=== PATIENT | female | born 1930 | race Caucasian/White ===

== ENCOUNTER 2017-02-16 17:35 | Inpatient (IN) | payer MEDICARE, BC ==
--- NOTE | ~2017-02-16 | IDS ---
Interim Discharge Summary [facility] [address] [place]. [address] NAME: NOELLE SMITH : [birth year] STATUS : ADM IN [facility]#: [id number] AGE: 86 ADM/REG DATE : 02/17/17 MR#: [id number] REPORT SERV DATE: 02/22/17 DICTATED BY: ELVER FLORES DATE: 02/21/17 REPORT STATUS : Draft TRANSCRIBED BY: DEAN DATE: 02/21/17 ADMISSION DATE: 02/17/2017 DISCHARGE DATE: 02/21/2017 PROCEDURES DONE: 1. CT of the head without contrast, no acute intracranial abnormality identified at this time. Moderate advanced cortical volume loss with prominent ex-vacuo dilatation of the ventricle system, moderate chronic deep white matter ischemic changes. 2. On 02/16/2017, chest x-ray: No acute process. 3. On 02/17/2017, ultrasound of carotids demonstrate category 1 changes bilaterally, less than 50% luminal stenosis by NASCET criteria. 4. On 02/17/2017, ultrasound renal, kidney symmetric, non-obstructed. Aorta, vena cava, urinary bladder identified and are normal. REASON FOR ADMISSION: Syncope. HISTORY OF HOSPITAL STAY: An 86-year-old white female with past medical history of Parkinson's disease, dementia, hypertension, hyperlipidemia, cardiac disease status post stent, GERD, presenting with syncopal episode. The patient was admitted for further evaluation of syncope. The patient underwent CT of the head, ultrasound of the carotids which were all within normal limits. However, the patient turned out to be positive for orthostatics which was quite severe. The patient has been given IV fluids slowly. Unfortunately, the patient's did not initially want the patient to go to an SNF. The wanted to take the patient home. However, due to the patient's severe orthostatics, the patient's realized that the best safe place for the patient is to be in a rehab facility. Unfortunately, when the patient's changed his mind it was during the weekend, hence Case Management will work on placement on Thursday. INTERIM DISCHARGE DIAGNOSES: 1. Syncope secondary to orthostatics. Slowly resolving. Continue orthostatic checks every shift. 2. Positive orthostatics. Continue IV fluids. 3. Parkinson's, currently asymptomatic. 4. Dementia, well controlled. FBJohnnie/MODL Elver Flores MD / [id number] CC: Elver Flores MD Interim Discharge Summary [address] [address] NAME: NOELLE SMITH : [birth year] STATUS : ADM IN PAT#: [id number] AGE: 86 ADM/REG DATE : 02/17/17 MR#: [id number] REPORT SERV DATE: 02/22/17 DICTATED BY: ELVER FLORES DATE: 02/21/17 REPORT STATUS : Draft TRANSCRIBED BY: MODL DATE: 02/21/17 Sergio Sage MD
--- NOTE | ~2017-02-16 | HP ---
History And Physical [facility] [address] [place]. [address] NAME: NOELLE MCNAIR : [birth year] STATUS : ADM Jelena PAT#: [id number] AGE: 86 ADM/REG DATE : 02/16/17 MR#: [id number] REPORT SERV DATE: 02/17/17 DICTATED BY: AMBER JOHN DATE: 02/16/17 REPORT STATUS : Draft TRANSCRIBED BY: MODCarlito DATE: 02/16/17 DATE OF ADMISSION: 02/16/2017 POINT OF ENTRY: [facility] Emergency Room department. PRIMARY DIMMER BOARD OPERATOR: Joel Cortés M.D. CHIEF COMPLAINT: Syncope. HISTORY OF PRESENT ILLNESS: Ms. Mcnair is an 86-year-old female with history of Parkinson disease, dementia, coronary artery disease as well as hypertension and hyperlipidemia, who presents to the emergency department today with a syncopal episode. Majority of history is obtained from the patient's family who is at bedside. The patient has dementia and is a poor historian. They state that she has had troubles with syncope now for the past year or two. Her primary care physician has attributed to her blood pressure and drops in her blood pressure when she stands up, but family states that no significant radiologic or cardiac workup is undertaken for workup of her syncope. The patient suffered a syncopal episode on Thursday with a prolonged period of unconsciousness which is unusual for her, and they presented to [facility] where she was diagnosed with urinary tract infection and admitted to the hospital for overnight stay and then discharged to home. The patient suffered another syncopal episode today while working with Physical Therapy and was reportedly unconscious for approximately 10 to 15 minutes while sitting in a chair at which time EMS was called. They laid her down on the ground in which she quickly woke up. The family states that they just filled the antibiotics for the urinary tract infection today. She has not reportedly complained of any palpitations, chest pain, shortness of breath, or abdominal pain prior to or after her syncopal episode. They do report that she has had some episodes of nausea and vomiting in a period around her syncopal episodes. Initial evaluation in the emergency department for EKG that was nonischemic. CT scan of the brain is negative. Chest x-ray is clear. She does have a creatinine of 1.2 with no known baseline. White count 16,900. Orthostatic vital signs were undertaken which was grossly positive with dramatic drop in her blood pressure with no compensatory rise in heart rate. She was subsequently admitted to the Hospitalist Service for further evaluation and management. REVIEW OF SYSTEMS: Comprehensive review of system otherwise negative unless listed in history of present illness. PREVIOUS MEDICAL HISTORY: 1. Parkinson disease. 2. Hypertension. 3. Hyperlipidemia. 4. Dementia. History And Physical [address] [address] NAME: NOELLE MCNAIR : [birth year] STATUS : ADM Jelena PAT#: [id number] AGE: 86 ADM/REG DATE : 02/16/17 MR#: [id number] REPORT SERV DATE: 02/17/17 DICTATED BY: AMBER JOHN DATE: 02/16/17 REPORT STATUS : Draft TRANSCRIBED BY: DEAN DATE: 02/16/17 5. Coronary artery disease with remote history of PCI. 6. Gastroesophageal reflux disease. SURGICAL HISTORY: 1. Cholecystectomy. 2. Breast lumpectomy. 3. Cataract surgery. ALLERGIES: AMOXICILLIN. HOME MEDICATIONS: 1. Artificial Tears one to two drops p.r.n. 2. Aspirin 81 mg daily. 3. Atorvastatin 10 mg at bedtime. 4. Sinemet CR 1 tab b.i.d. 5. Ciprofloxacin 500 mg b.i.d. 6. Plavix 75 mg daily. 7. Aricept 5 mg at bedtime. 8. Lasix 20 mg daily. 9. Winslow half tab b.i.d. 10.Indomethacin 50 mg at bedtime. 11.Lansoprazole 30 mg daily. 12.Meclizine 25 mg q.8 hours p.r.n. 13.Namenda XR 21 mg at bedtime. 14.Toprol-XL 12.5 mg t.i.d. 15.Multivitamin tab daily. 16.Tramadol 50 mg b.i.d. SOCIAL HISTORY: Denies any tobacco, alcohol, or illicit. Is . FAMILY MEDICAL HISTORY: Mother with history of dementia. Father with colon cancer. Siblings with breast cancer and brain cancer. LABS AND IMAGIN. White count 16.9, hemoglobin is 12.1, hematocrit 37.1, and platelet count 326. 2. Sodium is 139, potassium 4.0, chloride 104, carbon dioxide 29, BUN 21, creatinine 1.20, glucose is 127, calcium is 9.5, and magnesium is 2.5. 3. Troponin is less than 0.02. 4. Lactic acid is 1.3. 5. Urinalysis: Specific gravity 1.013, 45 red blood cells per high field with no evidence of any infection but [address] scan of the brain shows no acute changes, shows moderate to advanced cortical volume loss and involutional deep white matter changes as well as ex vacuo dilatation of the ventricles. 7. Chest x-ray per my review shows no acute cardiopulmonary abnormality. 8. Her EKG per my review shows normal sinus rhythm with some left axis deviation and LVH but no evidence of any acute ischemia or infarction. History And Physical [address] [address] NAME: NOELLE MCNAIR : [birth year] STATUS : ADM Jelena PAT#: [id number] AGE: 86 ADM/REG DATE : 02/16/17 MR#: [id number] REPORT SERV DATE: 02/17/17 DICTATED BY: AMBER JOHN DATE: 02/16/17 REPORT STATUS : Draft TRANSCRIBED BY: DAEN DATE: 02/16/17 ORTHOSTATIC VITAL SIGNS: 1. Lying down blood pressure 140/54 and pulse is 74. 2. Sitting blood pressure 111/49 and pulse of 74. 3. Standing blood pressure 90/26 and pulse is 79. PHYSICAL EXAMINATION: VITAL SIGNS: Temperature is 97.3 degrees Fahrenheit, pulse is 65, respirations 14, saturating 97% on room air, and blood pressure 127/67. On recheck, blood pressure now 165/42 and pulse of 69. GENERAL: The patient is awake, alert, in no acute distress. Resting comfortably in bed. She is a well-developed, well-nourished, elderly female. Family is at bedside. HEENT: Atraumatic and normocephalic. Moist mucous membranes. Pupils are equal, round, and reactive to light and accommodation. Extraocular eye movements intact. No scleral icterus. NECK: No jugular venous distention or carotid bruits. CARDIAC: Regular rate and rhythm. No murmurs or gallops. Normal S1 and S2. LUNGS: Clear to auscultation bilaterally. No wheezes, rhonchi, or crackles. ABDOMEN: Soft, nontender, and nondistended with good bowel sounds. No rebound, guarding, or rigidity. EXTREMITIES: Warm and well perfused. No cyanosis, clubbing, or edema. The patient has multiple areas of ecchymoses of various ages of her bilateral lower extremities from the knees on down including the dorsum of bilateral feet, left greater than right. SKIN: Warm and dry except for noted above. PSYCH: Affect appropriate. NEURO: Alert and oriented x3. Cranial nerves 2 through 12 grossly intact. Speech is normal. Gait is not assessed. ASSESSMENT AND PLAN: Ms. Mcnair is an 86-year-old female who presents with a 1- to 2- year history of recurrent syncopal episodes and found here to have evidence of orthostatic hypotension. 1. Syncope. 2. Orthostatic hypotension. 3. Recent urinary tract infection. 4. Leukocytosis. 5. Hematuria. 6. Parkinson disease. 7. Dementia. PLAN: 1. Syncope. I suspect that the patient's recurrent syncope is likely due to orthostatic hypotension likely from underlying Parkinson disease and/or advanced age. CT scan of the brain was unremarkable. Labs notable for some mildly elevated creatinine level with unknown baseline as well as leukocytosis without evidence of underlying infection. She was profoundly orthostatic on exam. We will check carotid arterial Dopplers and echocardiogram, hold her Toprol-XL as well as Lasix, provide some IV fluid hydration, and recheck orthostatic vital signs in the morning. Physical therapy consultation for fall risk management. [facility] this History And Physical [address] [address] NAME: NOELLE MCNAIR : [birth year] STATUS : ADM Jelena PAT#: [id number] AGE: 86 ADM/REG DATE : 02/16/17 MR#: [id number] REPORT SERV DATE: 02/17/17 DICTATED BY: AMBER JOHN DATE: 02/16/17 REPORT STATUS : Draft TRANSCRIBED BY: MODL DATE: 02/16/17 is all again orthostatic hypotension related. 2. Orthostatic hypotension. I suspect this is likely due to autonomic insufficiency from her Parkinson disease and/or advanced age. She is also on metoprolol XL as well. We will hold her Toprol-XL as well as Lasix. Provide IV fluid hydration. Checking echo as well as carotid arterial Dopplers and recheck orthostatic vital signs in the morning. 3. Recent urinary tract infection. Family states that she did not fill her antibiotic until today. Urinalysis here has been sterilized. We will place her on some a short course of Levaquin. 4. Hematuria. Is on aspirin and Plavix. We will check a renal ultrasound. 5. Parkinson disease. Continue the patient's Sinemet. 6. Dementia. Continue the patient's home dementia medications. 7. Leukocytosis, likely again secondary to recent UTI. Chest x-ray is clear. Blood cultures have been obtained. She is afebrile with stable vital signs. 8. DVT prophylaxis. Lovenox subcu. 9. Code status. The patient wishes to be full code. MICHEALB/MODL ber John MD / [id number] CC: Pepe Love M.D. Joel Cortés M.D.
--- NOTE | ~2017-02-16 | DS ---
Discharge Summary [address] [place]. [address] NAME: NOELLE SMITH : [birth year] STATUS : DIS IN PAT#: [id number] AGE: 86 ADM/REG DATE : 02/17/17 MR#: [id number] REPORT SERV DATE: 02/27/17 DICTATED BY: LOLIS LOVE DATE: 02/26/17 REPORT STATUS : Draft TRANSCRIBED BY: MODL DATE: 02/26/17 ADMISSION DATE: 02/16/2017 DISCHARGE DATE: 02/26/2017 DISCHARGE DIAGNOSES: 1. Syncope, recurrent thought secondary to orthostatic hypotension. 2. Orthostatic hypotension, multifactorial, resolved at discharge. 3. Hypertension history, normotensive at discharge. 4. Parkinson disease by history. 5. Dementia. 6. Iron deficiency, treated. 7. Acute blood loss anemia. 8. Chronic anemia. 9. Chronic pain syndrome. 10.Mild oropharyngeal dysphagia. 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 12.Chronic constipation. 13.Urinary incontinence. 14.Fecal continence. 15.Coronary artery disease with previous stenting. OPERATIONS AND PROCEDURES: None. PRESENT ILLNESS: This is an 86-year-old white female, resident of [place], [place], who was triaged in the emergency room on 02/16/2017 at 1452 hours after a syncopal episode. Admission ER vital signs, blood pressure 127/67, temperature 97.3, pulse 65, respirations 14, O2 saturation 97%. Orthostatic blood pressure 142/54 lying, 111/49 sitting, 90/26 standing. After evaluation in the emergency room, she was referred to the Hospitalist Service for admission. She was seen by Dr. Miguel Gabriel and admitted as described on admission history and physical examination. ADDITIONAL HISTORY: Per Dr. Gabriel. PHYSICAL EXAMINATION: Per Dr. Gabriel. ADMISSION LABORATORY: Per Dr. Gabriel. HOSPITAL COURSE: She was admitted by Dr. Gabriel with: 1. Syncope. 2. Orthostatic hypotension. 3. Recent urinary tract infection. 4. Leukocytosis. 5. Hematuria. Discharge Summary [address] [place]. [address] NAME: NOELLE SMITH : [birth year] STATUS : DIS IN PAT#: [id number] AGE: 86 ADM/REG DATE : 02/17/17 MR#: [id number] REPORT SERV DATE: 02/27/17 DICTATED BY: LOLIS LOVE DATE: 02/26/17 REPORT STATUS : Draft TRANSCRIBED BY: DEAN DATE: 02/26/17 6. Parkinson's disease. 7. Dementia. She was admitted to [address] [place] [address] Gabriel felt her syncope was related to orthostatic hypotension. She was given IV hydration. Lasix and Toprol-XL were held. Additional diagnostic studies were ordered. Her hospitalist care was by the undersigned on 02/17 and 02/18. She was seen by Dr. De Los Santos on 02/19, 02/20, and 02/21. She was seen by Dr. Porter on 02/22 and 02/23 and then by the undersigned on 02/24, 02/25, and 02/26. Her hospital course from admission through 02/21 including results of diagnostic studies is as outlined on interim summary dictated by Dr. De Los Santos. During her hospitalization, there was a slow improvement in her orthostatic hypotension. She did not have definite recurrent syncope but had near-syncope. Her orthostatic hypotension finally resolved after discontinuation of her Sinemet CR, Lasix, hydrocodone, indomethacin, Antivert, and Toprol-XL. By the time of discharge, lying blood pressure 141/64 with a pulse of 95, sitting 134/62 with a pulse of 95, standing 135/63 with a pulse of 101. She did not have tremor, cogwheeling, dyskinesias, or mask facies with a slow taper of her Sinemet CR and subsequent discontinuation. The day prior to discharge, her electrolytes were normal with a sodium 141, potassium 3.7, chloride 106, CO2 of 25, BUN 9, creatinine 0.62, glucose 84, calcium 9.5. Noting on admission her BUN was 21 and creatinine 1.2 while on the above-mentioned medications. She was seen by Physical Therapy. Nursing Home Facility discharge was recommended. This was on 02/17. Initially, the patient's thought that he could manage at home with support from family and friends. He subsequently decided that this would not be possible, but then by the time of discharge, thought that he could manage adequately at home with family and friends. He also indicated that he and his had made a pact several years ago that they would not put the other in a facility. This was discussed with him by nursing staff, the undersigned, and Case Management as to the practical feasibility of providing the care that she would need. However, he felt that he could manage. There were no in-hospital complications. With hydration, her hemoglobin did fall from 12.1 to 10.7 but was stable. She was thought to be mildly iron deficient with an iron of 58, TIBC of 212, and a ferritin of 69. She was given IV Nulecit. At one point, there was concern about the patient's swallowing. Bedside study was done, and no overt signs or symptoms of aspiration were noted. By 02/26 in the absence of orthostatic hypotension, recurrent syncope, or other Discharge Summary [place] [id number] [facility] [place]. [address] NAME: NOELLE SMITH : [birth year] STATUS : DIS IN PAT#: [id number] AGE: 86 ADM/REG DATE : 02/17/17 MR#: [id number] REPORT SERV DATE: 02/27/17 DICTATED BY: LOLIS LOVE DATE: 02/26/17 REPORT STATUS : Draft TRANSCRIBED BY: DEAN DATE: 02/26/17 abnormalities requiring continued hospitalization, it was felt she could be safely discharged home. She will have home health care for home evaluation, med rec, PT evaluation and treatment, and a wheelchair was prescribed at discharge. An appointment was made for her to see her primary care physician, Dr. Sergio Sage in [place] next week. DISCHARGE MEDICATIONS: Pending outpatient followup will be Tylenol 500 mg three times daily as needed, tramadol 50 mg one half to one 3 times daily as needed for pain (control pain during her hospitalization), aspirin 81 mg daily, Lipitor 10 mg daily, Plavix 75 mg daily, Aricept 5 mg at bedtime, multivitamin daily, Namenda XR 21 mg at bedtime, MiraLAX one packet twice daily, Senokot 2 at bedtime, Prevacid 30 mg daily, and Refresh eye drops. At discharge, she was not to use hydrocodone, Sinemet, indomethacin, meclizine, Lasix, Toprol-XL. Discharge time greater than 30 minutes. DD/MODL Lolis Love M.D. / [id number] CC: Dr. Sergio Sage
[2017-02-16 16:45] LABS: BASOPHILS 0.5 %; BASOPHILS ABSOLUTE 0.08 10/3/uL (0.0-0.16); EOSINOPHILS 1.8 %; ER CBC TAT 0 Hrs 05 Mins; HEMATOCRIT 37.1 % (36.0-48.0); HEMOGLOBIN 12.1 g/dL (12.0-16.0); IMMATURE GRANULOCYTES 0.4 %; IMMATURE GRANULOCYTES ABSOLUTE 0.07 10/3/uL (0.0-0.11); LYMPHOCYTES 10.6 %; LYMPHOCYTES ABSOLUTE 1.79 10/3/uL (0.67-4.30); MEAN CORPUS HGB CONC 32.6 g/dL (32.0-36.0); MEAN CORPUSCULAR HEMOGLOB 28.5 pg (26.0-34.0); MEAN CORPUSCULAR VOLUME 87.5 fL (80-100); MEAN PLATELET VOLUME 10.1 fL (9.2-13.0); MONOCYTES 5.2 %; MONOCYTES ABSOLUTE 0.88 10/3/uL (0.21-1.20); NEUTROPHILS 81.5 %; NEUTROPHILS ABSOLUTE 13.81 10/3/uL (2.02-8.40); PLATELET COUNT 326 10/3/uL (150-400); RBC DISTRIBUTION WIDTH 12.8 % (12.0-16.0); RED CELL COUNT 4.24 10/6/uL (4.0-5.6); WHITE BLOOD CELLS 16.9 10/3/uL (4.5-10.5)
[2017-02-16 16:46] LABS: MANUAL DIFF NO %
[2017-02-16 17:07] LABS: BUN (BLOOD UREA NITROGEN) 21 MG/DL (6-23); CALCIUM, SERUM 9.5 MG/DL (8.5-10.4); CHEST PAIN PROFILE TAT 0 Hrs 27 Mins; CHLORIDE, SERUM 104 MMOL/L (96-112); CO2 (CARBON DIOXIDE) 29 MMOL/L (24-34); GFR AFRICAN AMERICAN 47 ML/MIN (>=60); GFR NON AFRICAN AMERICAN 41 ML/MIN (>=60); GLUCOSE, SERUM 127 MG/DL (60-99); SODIUM, SERUM 139 MMOL/L (135-148); TROPONIN I <0.02 NG/ML (<0.05)
[2017-02-16 18:43] LABS: WBC (NOT ORDERED) (RFLEX) 0 (0-5)
[2017-02-16 18:56] LABS: ASCORBIC ACID (UR NOT ORDER) NEG (NEG); BILIRUBIN, URINE NEGATIVE (NEG); ER URINALYSIS TAT 0 Hrs 14 Mins; KETONE, URINE NEGATIVE (NEG); LEUKOCYTE ESTERASE(NOT OR NEG (NEG); NITRITE (URINE) NEG (NEG)
[2017-02-16] MEDS ORDERED: NAMENXR21 PO (20:15)
[2017-02-16] MEDS ORDERED: ASAB PO (20:16)
[2017-02-16] MEDS ORDERED: LIPITOR10 PO (20:16)
[2017-02-16] MEDS ORDERED: ULTRAM50 PO (20:16)
[2017-02-16] MEDS ORDERED: SINCR25100 PO (20:17)
[2017-02-16] MEDS ORDERED: PLAVIX PO (20:17)
[2017-02-16] MEDS ORDERED: ARICEPT5 PO (20:18)
[2017-02-16] MEDS ORDERED: NORCO1 TA1 PO (20:19)
[2017-02-16] MEDS ORDERED: INDO50 PO (20:19)
[2017-02-16] MEDS ORDERED: PREV30 PO (20:20)
[2017-02-16] MEDS ORDERED: L20 PO (20:21)
[2017-02-16] MEDS ORDERED: MCZ25 PO (20:21)
[2017-02-16] MEDS ORDERED: TOPXL25 PO (20:22)
[2017-02-16 20:23] LABS: PROTIME (NOT ORD) 13.5 SEC (12.0-14.5)
[2017-02-16] MEDS ORDERED: REFRESH OPH (20:23)
[2017-02-16] MEDS ORDERED: THERGRANM PO (20:23)
[2017-02-16 20:24] LABS: PARTIAL THROMBO TIME 27.1 SEC (22.5-37.2)
[2017-02-16] MEDS ORDERED: CIP5 PO (20:24)
[2017-02-16 23:19] LABS: ALBUMIN 3.7 G/DL (3.5-5.0); ALKALINE PHOSPHATASE 117 U/L (45-117); FREE T4 1.43 NG/DL (0.76-1.46); SGOT(AST) 24 U/L (5-40); SGPT(ALT) 11 U/L (5-65); TOTAL BILIRUBIN 0.3 MG/DL (0-1.2)
[2017-02-16 23:20] LABS: DIRECT BILIRUBIN < 0.1 MG/DL (0.0-0.4); INDIRECT BILIRUBIN(NOT ORDER) 0.2 MG/DL (0.1-0.9)
[2017-02-17 00:14] LABS: CPK 61 U/L (0-200); TROPONIN I <0.02 NG/ML (<0.05)
[2017-02-17 00:15] LABS: CK-MB 1.8 NG/ML
[2017-02-17 00:23] LABS: PROCALCITONIN <0.05 ng/mL (<0.5)
[2017-02-17 04:57] LABS: CREATININE, URINE 40.7 MG/DL
[2017-02-17 06:50] LABS: BASOPHILS 0.7 %; BASOPHILS ABSOLUTE 0.06 10/3/uL (0.0-0.16); EOSINOPHILS 3.3 %; EOSINOPHILS ABSOLUTE 0.29 10/3/uL (0.0-0.53); HEMOGLOBIN 9.9 g/dL (12.0-16.0); IMMATURE GRANULOCYTES 0.2 %; IMMATURE GRANULOCYTES ABSOLUTE 0.02 10/3/uL (0.0-0.11); LYMPHOCYTES 25.2 %; MEAN CORPUS HGB CONC 32.6 g/dL (32.0-36.0); MEAN CORPUSCULAR HEMOGLOB 28.6 pg (26.0-34.0); MEAN CORPUSCULAR VOLUME 87.9 fL (80-100); MEAN PLATELET VOLUME 9.6 fL (9.2-13.0); MONOCYTES 6.9 %; NEUTROPHILS 63.7 %; NEUTROPHILS ABSOLUTE 5.56 10/3/uL (2.02-8.40); PLATELET COUNT 300 10/3/uL (150-400); RBC DISTRIBUTION WIDTH 12.5 % (12.0-16.0); RED CELL COUNT 3.46 10/6/uL (4.0-5.6)
[2017-02-17 07:04] LABS: HEMATOCRIT 30.4 % (36.0-48.0); MANUAL DIFF NO %; WHITE BLOOD CELLS 8.7 10/3/uL (4.5-10.5)
[2017-02-17 07:06] LABS: CALCIUM, SERUM 8.6 MG/DL (8.5-10.4); CHLORIDE, SERUM 110 MMOL/L (96-112); CO2 (CARBON DIOXIDE) 28 MMOL/L (24-34); CPK 56 U/L (0-200); CREATININE 0.92 MG/DL (0.55-1.02); GFR AFRICAN AMERICAN 65 ML/MIN (>=60); GFR NON AFRICAN AMERICAN 56 ML/MIN (>=60); POTASSIUM, SERUM 3.9 MMOL/L (3.5-5.3); SODIUM, SERUM 144 MMOL/L (135-148); TROPONIN I <0.02 NG/ML (<0.05)
[2017-02-17 07:07] LABS: BUN (BLOOD UREA NITROGEN) 15 MG/DL (6-23); CK-MB 1.4 NG/ML; GLUCOSE, SERUM 91 MG/DL (60-99)
[2017-02-17 19:39] LABS: FERRITIN 74 NG/ML (8-252); IRON BINDING CAPACITY 235 MCG/DL (225-410); IRON, SERUM 57 MCG/DL (35-150)
[2017-02-18 05:54] LABS: BASOPHILS 0.9 %; BASOPHILS ABSOLUTE 0.09 10/3/uL (0.0-0.16); EOSINOPHILS ABSOLUTE 0.57 10/3/uL (0.0-0.53); HEMATOCRIT 30.9 % (36.0-48.0); HEMOGLOBIN 10.2 g/dL (12.0-16.0); IMMATURE GRANULOCYTES 0.1 %; IMMATURE GRANULOCYTES ABSOLUTE 0.01 10/3/uL (0.0-0.11); LYMPHOCYTES 23.6 %; LYMPHOCYTES ABSOLUTE 2.26 10/3/uL (0.67-4.30); MANUAL DIFF NO %; MEAN CORPUSCULAR HEMOGLOB 28.7 pg (26.0-34.0); MEAN PLATELET VOLUME 9.6 fL (9.2-13.0); MONOCYTES 7.7 %; MONOCYTES ABSOLUTE 0.74 10/3/uL (0.21-1.20); NEUTROPHILS 61.7 %; NEUTROPHILS ABSOLUTE 5.89 10/3/uL (2.02-8.40); PLATELET COUNT 304 10/3/uL (150-400); RBC DISTRIBUTION WIDTH 12.7 % (12.0-16.0); RED CELL COUNT 3.55 10/6/uL (4.0-5.6); WHITE BLOOD CELLS 9.6 10/3/uL (4.5-10.5)
[2017-02-18 06:35] LABS: BUN (BLOOD UREA NITROGEN) 12 MG/DL (6-23); CALCIUM, SERUM 8.8 MG/DL (8.5-10.4); CHLORIDE, SERUM 107 MMOL/L (96-112); CO2 (CARBON DIOXIDE) 25 MMOL/L (24-34); CREATININE 0.88 MG/DL (0.55-1.02); FERRITIN 69 NG/ML (8-252); GFR AFRICAN AMERICAN 68 ML/MIN (>=60); GFR NON AFRICAN AMERICAN 59 ML/MIN (>=60); GLUCOSE, SERUM 89 MG/DL (60-99); IRON BINDING CAPACITY 212 MCG/DL (225-410); IRON, SERUM 58 MCG/DL (35-150); POTASSIUM, SERUM 3.7 MMOL/L (3.5-5.3); SODIUM, SERUM 142 MMOL/L (135-148)
[2017-02-20 04:51] LABS: BASOPHILS 0.8 %; BASOPHILS ABSOLUTE 0.09 10/3/uL (0.0-0.16); EOSINOPHILS 4.2 %; EOSINOPHILS ABSOLUTE 0.49 10/3/uL (0.0-0.53); HEMATOCRIT 31.1 % (36.0-48.0); HEMOGLOBIN 10.3 g/dL (12.0-16.0); IMMATURE GRANULOCYTES 0.2 %; IMMATURE GRANULOCYTES ABSOLUTE 0.02 10/3/uL (0.0-0.11); LYMPHOCYTES 17.8 %; LYMPHOCYTES ABSOLUTE 2.09 10/3/uL (0.67-4.30); MEAN CORPUS HGB CONC 33.1 g/dL (32.0-36.0); MEAN CORPUSCULAR HEMOGLOB 28.5 pg (26.0-34.0); MEAN CORPUSCULAR VOLUME 86.1 fL (80-100); MONOCYTES ABSOLUTE 0.82 10/3/uL (0.21-1.20); PLATELET COUNT 308 10/3/uL (150-400); RBC DISTRIBUTION WIDTH 12.7 % (12.0-16.0); RED CELL COUNT 3.61 10/6/uL (4.0-5.6); WHITE BLOOD CELLS 11.7 10/3/uL (4.5-10.5)
[2017-02-20 04:56] LABS: MANUAL DIFF NO %
[2017-02-20 05:14] LABS: A/G RATIO 1.3 (0.7-1.9); ALBUMIN 3.4 G/DL (3.5-5.0); BUN (BLOOD UREA NITROGEN) 12 MG/DL (6-23); CALCIUM, SERUM 8.8 MG/DL (8.5-10.4); CHLORIDE, SERUM 105 MMOL/L (96-112); CO2 (CARBON DIOXIDE) 26 MMOL/L (24-34); CREATININE 0.81 MG/DL (0.55-1.02); GFR AFRICAN AMERICAN 76 ML/MIN (>=60); GFR NON AFRICAN AMERICAN 65 ML/MIN (>=60); GLOBULIN 2.7 G/DL (2.5-4.1); GLUCOSE, SERUM 87 MG/DL (60-99); PHOSPHORUS, SERUM 2.4 MG/DL (2.5-4.5); POTASSIUM, SERUM 3.4 MMOL/L (3.5-5.3); SGOT(AST) 20 U/L (5-40); SGPT(ALT) 15 U/L (5-65); SODIUM, SERUM 140 MMOL/L (135-148); TOTAL BILIRUBIN 0.3 MG/DL (0-1.2); TOTAL PROTEIN 6.1 G/DL (6.0-8.5)
[2017-02-20 05:18] LABS: ALKALINE PHOSPHATASE 104 U/L (45-117)
[2017-02-21 05:28] LABS: BUN (BLOOD UREA NITROGEN) 12 MG/DL (6-23); CHLORIDE, SERUM 107 MMOL/L (96-112); CO2 (CARBON DIOXIDE) 29 MMOL/L (24-34); CREATININE 0.71 MG/DL (0.55-1.02); GFR AFRICAN AMERICAN 89 ML/MIN (>=60); GFR NON AFRICAN AMERICAN 77 ML/MIN (>=60); GLUCOSE, SERUM 77 MG/DL (60-99); PHOSPHORUS, SERUM 2.1 MG/DL (2.5-4.5); POTASSIUM, SERUM 3.8 MMOL/L (3.5-5.3); SODIUM, SERUM 141 MMOL/L (135-148)
[2017-02-22 05:33] LABS: BUN (BLOOD UREA NITROGEN) 9 MG/DL (6-23); CALCIUM, SERUM 9.2 MG/DL (8.5-10.4); CHLORIDE, SERUM 105 MMOL/L (96-112); CO2 (CARBON DIOXIDE) 26 MMOL/L (24-34); CREATININE 0.65 MG/DL (0.55-1.02); GFR AFRICAN AMERICAN 93 ML/MIN (>=60); GFR NON AFRICAN AMERICAN 80 ML/MIN (>=60); GLUCOSE, SERUM 73 MG/DL (60-99); PHOSPHORUS, SERUM 2.4 MG/DL (2.5-4.5); POTASSIUM, SERUM 3.8 MMOL/L (3.5-5.3); SODIUM, SERUM 139 MMOL/L (135-148)
[2017-02-23 04:08] LABS: BUN (BLOOD UREA NITROGEN) 9 MG/DL (6-23); CALCIUM, SERUM 9.2 MG/DL (8.5-10.4); CHLORIDE, SERUM 105 MMOL/L (96-112); CO2 (CARBON DIOXIDE) 27 MMOL/L (24-34); GFR AFRICAN AMERICAN 90 ML/MIN (>=60); GFR NON AFRICAN AMERICAN 78 ML/MIN (>=60); GLUCOSE, SERUM 89 MG/DL (60-99); PHOSPHORUS, SERUM 2.2 MG/DL (2.5-4.5); POTASSIUM, SERUM 4.1 MMOL/L (3.5-5.3); SODIUM, SERUM 141 MMOL/L (135-148)
[2017-02-24 07:22] LABS: BUN (BLOOD UREA NITROGEN) 9 MG/DL (6-23); CALCIUM, SERUM 9.1 MG/DL (8.5-10.4); CHLORIDE, SERUM 106 MMOL/L (96-112); CO2 (CARBON DIOXIDE) 29 MMOL/L (24-34); CREATININE 0.65 MG/DL (0.55-1.02); GFR AFRICAN AMERICAN 93 ML/MIN (>=60); GFR NON AFRICAN AMERICAN 80 ML/MIN (>=60); GLUCOSE, SERUM 99 MG/DL (60-99); POTASSIUM, SERUM 3.4 MMOL/L (3.5-5.3); SODIUM, SERUM 141 MMOL/L (135-148)
[2017-02-24 08:11] LABS: PHOSPHORUS, SERUM 2.5 MG/DL (2.5-4.5)
[2017-02-25 05:22] LABS: BASOPHILS 1.1 %; BASOPHILS ABSOLUTE 0.12 10/3/uL (0.0-0.16); EOSINOPHILS 4.3 %; EOSINOPHILS ABSOLUTE 0.45 10/3/uL (0.0-0.53); HEMATOCRIT 32.5 % (36.0-48.0); HEMOGLOBIN 10.7 g/dL (12.0-16.0); IMMATURE GRANULOCYTES 0.5 %; IMMATURE GRANULOCYTES ABSOLUTE 0.05 10/3/uL (0.0-0.11); LYMPHOCYTES 20.6 %; LYMPHOCYTES ABSOLUTE 2.15 10/3/uL (0.67-4.30); MEAN CORPUS HGB CONC 32.9 g/dL (32.0-36.0); MEAN CORPUSCULAR HEMOGLOB 28.8 pg (26.0-34.0); MEAN CORPUSCULAR VOLUME 87.4 fL (80-100); MEAN PLATELET VOLUME 9.8 fL (9.2-13.0); MONOCYTES ABSOLUTE 1.04 10/3/uL (0.21-1.20); NEUTROPHILS 63.5 %; NEUTROPHILS ABSOLUTE 6.63 10/3/uL (2.02-8.40); PLATELET COUNT 312 10/3/uL (150-400); RBC DISTRIBUTION WIDTH 13.1 % (12.0-16.0); RED CELL COUNT 3.72 10/6/uL (4.0-5.6); WHITE BLOOD CELLS 10.4 10/3/uL (4.5-10.5)
[2017-02-25 05:26] LABS: MANUAL DIFF NO %
[2017-02-25 05:32] LABS: BUN (BLOOD UREA NITROGEN) 9 MG/DL (6-23); CALCIUM, SERUM 9.5 MG/DL (8.5-10.4); CHLORIDE, SERUM 106 MMOL/L (96-112); CO2 (CARBON DIOXIDE) 25 MMOL/L (24-34); CREATININE 0.62 MG/DL (0.55-1.02); GFR AFRICAN AMERICAN 94 ML/MIN (>=60); GFR NON AFRICAN AMERICAN 81 ML/MIN (>=60); GLUCOSE, SERUM 84 MG/DL (60-99); POTASSIUM, SERUM 3.7 MMOL/L (3.5-5.3); SODIUM, SERUM 141 MMOL/L (135-148)
[2017-02-26] MEDS ORDERED: ACET500CAP PO (13:47)
[2017-02-26] MEDS ORDERED: MIRALAX POWDER1 PKT PO (13:50)
[2017-02-26] MEDS ORDERED: SENTAB PO (13:51)
== END 2017-02-26 15:51 | disposition home health service (06) | DRG 312 ==
LOC: ER 17:35 → 6NO 21:18
PROVIDERS: Hospitalist; Internal Medicine; Nurse Practitioner Family
DX: I95.1 Orthostatic hypotension (principal); N17.9 Acute kidney failure, unspecified; G20 Parkinson's disease; D62 Acute posthemorrhagic anemia; F02.80 Dementia in other diseases classified elsewhere, unspecified severity, without behavioral disturbance, psychotic disturbance, mood disturbance, and anxiety; R13.12 Dysphagia, oropharyngeal phase; I25.10 Atherosclerotic heart disease of native coronary artery without angina pectoris; N18.3 Chronic kidney disease, stage 3 (moderate); G89.4 Chronic pain syndrome; E78.5 Hyperlipidemia, unspecified; K59.00 Constipation, unspecified; R32 Unspecified urinary incontinence; Z95.5 Presence of coronary angioplasty implant and graft; Z87.440 Personal history of urinary (tract) infections; K21.9 Gastro-esophageal reflux disease without esophagitis; Z94.9 Transplanted organ and tissue status, unspecified; Z79.82 Long term (current) use of aspirin; Z79.02 Long term (current) use of antithrombotics/antiplatelets
CPT/HCPCS: 70450; 71010; 76775; 80048; 80053; 80076; 81001; 82533; 82550; 82553; 82570; 82607; 82728; 83540; 83550; 83605; 83735; 83935; 84100; 84145; 84300; 84439; 84443; 84484; 85025; 85610; 85730; 87040; 92610-GN; 93005; 93880; 97110-GP; 97116-GP; 97161-GP; 97530-GP; 99285; A9270-GY; C8929; G8978-CL-GP; G8979-CK-GP; G8996-CJ-GN; G8997-CJ-GN; G8998-CJ-GN; J1956; J2405; J2916; Q9957